=== PATIENT | female | born 1965 | race Caucasian/White ===

== ENCOUNTER 2016-11-01 12:34 | Emergency (ER) | payer OTHER ==
[~2016-11-01] VITALS: Ht 160 cm; Wt 51.1 kg
[2016-11-01] MEDS ORDERED: KETOROLAC 30 MG/1 ML ONE (13:26)
[2016-11-01] MEDS ORDERED: SODIUM CHLORIDE 0.9% 1,000ML IVBOLUS ONE (13:30)
[2016-11-01] MEDS ORDERED: KETOROLAC 30 MG/1 ML IVPush ONE (13:30)
[2016-11-01] MEDS ORDERED: SODIUM CHLORIDE FLUSH 10ML SYR IVF ONE (13:30)
[2016-11-01 13:35] LABS: BLOOD UREA NITROGEN 7 mg/dL (7-18)
[2016-11-01 13:46] LABS: HEMATOCRIT 35.4 % (34.6-47.8); HEMOGLOBIN 11.9 g/dL (11.7-16.4); WHITE BLOOD COUNT 3.2 x10^3/uL (3.4-10)
[2016-11-01 14:46] VITALS: BP 131/65
== END 2016-11-01 15:32 | disposition home or self-care (01) ==
LOC: ED 14:03
DX: M79.1 Myalgia (principal)
CPT/HCPCS: 36415; 80048; 81003; 82040; 84436; 84443; 85025; 93005; 96361; 96374; 99285; J1885; J7030

== ENCOUNTER → 2016-11-14 | Outpatient (CLI) | payer OTHER | END | disposition home or self-care (01) | LOC: CFH 12:04 | PROVIDERS: ATTEND Physician Assistant | DX: Z12.31 Encounter for screening mammogram for malignant neoplasm of breast (principal); I10 Essential (primary) hypertension; F32.89 Other specified depressive episodes | CPT/HCPCS: G0202 ==

== ENCOUNTER 2020-04-21 09:02 | Emergency (ER) | payer OTHER ==
[~2020-04-21] VITALS: Ht 160 cm; Wt 58.0 kg
--- NOTE | 2020-04-21 09:14 | NUR ---
[employer]: PT TRANSFERED TO ROOM W/ CSPINE PRECAUTIONS. CCOLLAR IN PLACE.
--- NOTE | 2020-04-21 09:26 | NUR ---
PT AMBULATED TO BR INDEPENDENTLY WITH A STEADY GAIT. PT EDUCATED ON CSPINE PRECAUTIONS. PT VERBALIZES UNDERSTANDING.
[2020-04-21] MEDS ORDERED: DIAZEPAM 10 MG TABLET PO ONE (09:30)
[2020-04-21] MEDS ORDERED: KETOROLAC 30 MG/1 ML IM ONE (09:30)
[2020-04-21] MEDS ORDERED: KETOROLAC 30 MG/1 ML ONE (09:34)
[2020-04-21] MEDS ORDERED: DIAZEPAM 5 MG TABLET ONE (09:34)
--- NOTE | 2020-04-21 10:08 | NUR ---
PT TO CT
--- NOTE | 2020-04-21 10:20 | NUR ---
PT BACK FROM CT. NO NEEDS AT THIS TIME. AWAITING RESULTS.
[2020-04-21 10:56] VITALS: BP 135/75
== END 2020-04-21 11:04 | disposition home or self-care (01) ==
LOC: ED 09:55
DX: S16.1XXA Strain of muscle, fascia and tendon at neck level, initial encounter (principal); V49.49XA Driver injured in collision with other motor vehicles in traffic accident, initial encounter; Y93.89 Activity, other specified; Y92.488 Other paved roadways as the place of occurrence of the external cause; Y99.8 Other external cause status
CPT/HCPCS: 72125; 96372; 99284; J1885

== ENCOUNTER 2020-04-25 12:28 | Emergency (ER) | payer OTHER ==
[~2020-04-25] VITALS: Ht 160 cm; Wt 59.1 kg
[2020-04-25 12:58] VITALS: BP 138/72
== END 2020-04-25 14:00 | disposition home or self-care (01) ==
LOC: ED 13:54
DX: S16.1XXA Strain of muscle, fascia and tendon at neck level, initial encounter (principal); Z76.0 Encounter for issue of repeat prescription; X58.XXXA Exposure to other specified factors, initial encounter; Y93.89 Activity, other specified; Y92.89 Other specified places as the place of occurrence of the external cause; Y99.8 Other external cause status
CPT/HCPCS: 99281